=== PATIENT | female | born 1980 ===

== ENCOUNTER 2021-02-11 10:23 | Outpatient (REF) | payer OTHER, SELFPAY | END 2021-02-11 10:24 | disposition home or self-care (01) | LOC: HO.SCI 10:23 | PROVIDERS: Visit Provider Nurse Practitioner Family | DX: Z13.89 Encounter for screening for other disorder (principal) ==

== ENCOUNTER 2021-03-07 08:43 | Outpatient (REF) | payer OTHER, SELFPAY ==
--- NOTE | ~2021-03-07 | CT_ITS ---
EXAMINATION: CT ABDOMEN AND PELVIS WITHOUT AND WITH CONTRAST CLINICAL INFORMATION: Gross hematuria COMPARISON: None TECHNIQUE: Multidetector volumetric imaging was performed of the abdomen and pelvis before and after the IV administration of 85 mL of Omnipaque 350 intravenous contrast. Sagittal and coronal reformatted images were obtained on the technologist's workstation. This CT examination was performed using dose optimization techniques as appropriate, variously including the following: *Automated exposure control *Adjustment of mA and/or kV according to patient size (this includes techniques or standardized protocols for targeted exams where dose is matched to indication/reason for exam; i.e. extremities or head) *Use of iterative reconstruction technique DLP: 482 mGy-cm FINDINGS: LUNG BASES: The visualized lung bases are unremarkable. LIVER, GALLBLADDER, AND BILIARY TREE: There is a 3 mm low-attenuation lesion in the left lobe of the liver difficult to characterize due to small size axial image 7 series 8. There is a 6 mm low-attenuation lesion in the posterior segment of the right lobe of the liver axial image 16 series 8 and axial image 111 series 9. Hounsfield units following contrast measure 20 questionable for a complex cyst.. There is a 6 mm low-attenuation lesion in the posterior segment of the right lobe of the liver suggestive of a cyst. PANCREAS: Unremarkable SPLEEN: Unremarkable ADRENAL GLANDS: Unremarkable KIDNEYS AND URETERS: The kidneys are normal in size, shape, and attenuation. No hydronephrosis, hydroureter, or calculi seen. No perinephric stranding. BLADDER: Unremarkable GASTROINTESTINAL TRACT: The small and large bowel are unremarkable. The appendix is jesus seen.. ABDOMINAL WALL: There is a small umbilical hernia containing fat. LYMPH NODES: Normal VASCULAR: Unremarkable PELVIC VISCERA: There is an IUD in the uterus in satisfactory position. There is a 2 cm right adnexal cyst. The left adnexa is unremarkable. OSSEOUS STRUCTURES: Unremarkable CT/CT abdomen pelvis wo/w con IMPRESSION: Normal CT IVP. No cause of hematuria seen. Three small low-attenuation liver lesions difficult to characterize due to small size. These may represent cysts. IUD in the uterus in satisfactory position. 2 cm right ovarian cyst.
[2021-03-07] MEDS: iohexoL 350 MG/ML 100 ML INFUS..BTL IV (10:13)
== END 2021-03-07 08:44 | disposition home or self-care (01) ==
LOC: HO.CT 08:43
PROVIDERS: Visit Provider Nurse Practitioner Family
DX: R31.0 Gross hematuria (principal); R30.0 Dysuria
CPT/HCPCS: 74178; Q9967